=== PATIENT | male | born 1985 | race Two or more races ===

== ENCOUNTER 2022-04-29 15:29 | Emergency (ER) | payer SELFPAY ==
[~2022-04-29] VITALS: Ht 182.9 cm; Wt 89.4 kg
[2022-04-29] MEDS ORDERED: IBUPROFEN 600 MG TABLET PO ONE (16:00)
[2022-04-29] MEDS ORDERED: ACETAMINOPHEN ES 500 MG TABLET PO ONE (16:00)
[2022-04-29] MEDS ORDERED: ACETAMINOPHEN ES 500 MG TABLET ONE (16:02)
[2022-04-29] MEDS ORDERED: IBUPROFEN 600 MG TABLET ONE (16:03)
--- NOTE | 2022-04-29 16:20 | NUR ---
NAHEED OFFICER YAHIR AT BEDSIDE FOR TRAFFIC REPORT
[2022-04-29] MEDS ORDERED: IBUP-1957 PO (16:51)
[2022-04-29 16:59] VITALS: BP 118/66
--- NOTE | 2022-04-29 16:59 | NUR ---
Patient discharged to home in stable condition. Written and verbal after care instructions given. Patient verbalizes understanding of instruction.
== END 2022-04-29 16:59 | disposition home or self-care (01) ==
LOC: ER 15:31
DX: S16.1XXA Strain of muscle, fascia and tendon at neck level, initial encounter (principal); V89.2XXA Person injured in unspecified motor-vehicle accident, traffic, initial encounter; Y93.89 Activity, other specified; Y92.89 Other specified places as the place of occurrence of the external cause; Y99.8 Other external cause status
CPT/HCPCS: 72040-TC; 72100-TC